=== PATIENT | female | born 1990 | race Caucasian/White ===

== ENCOUNTER 2020-12-13 13:49 | Emergency (ER) | payer OTHER ==
[~2020-12-13 13:49] MED LIST: ANAPROX DS550 MG PO; CLEOCIN HCL300 MG PO; NAPROSYN500 MG PO; ZOFRAN4 MG PO
[2020-12-13 15:01] LABS: HEMOGLOBIN 12.4 gm/dl (12.3-15.3); RED BLOOD COUNT 3.97 M/UL (4.00-5.10); WHITE BLOOD COUNT 4.5 K/UL (4.5-11.0)
[2020-12-13 15:26] LABS: BUN/CREATININE RATIO 14 (0-10)
[2020-12-13] MEDS ORDERED: CEPHALEXIN500 M1 PO (15:49)
== END 2020-12-13 16:20 | disposition home or self-care (01) ==
LOC: ER1 13:49
PROVIDERS: Physician Assistant
DX: N93.9 Abnormal uterine and vaginal bleeding, unspecified (principal); N39.0 Urinary tract infection, site not specified; F17.200 Nicotine dependence, unspecified, uncomplicated; Z90.89 Acquired absence of other organs; Z88.0 Allergy status to penicillin
CPT/HCPCS: 80053; 81001; 84702; 85025; 87086; 99284

== ENCOUNTER → 2021-02-12 | Outpatient (CLI) | payer OTHER ==
[~2021-02-12] MED LIST changes: +CEPHALEXIN500 M1 PO
== END ==
LOC: US 02-02 10:30
DX: N63.10 Unspecified lump in the right breast, unspecified quadrant (principal)
CPT/HCPCS: 76641-RT